=== PATIENT | male | born 1970 | race Caucasian/White ===

== ENCOUNTER → 2017-03-09 | Outpatient (CLI) | payer OTHER ==
[~2017-03-09] MED LIST: ADAL40KI SC; AMPH10TA2 PO; CHOLTAB11 PO; CZR50 PO; GLC/500 PO; WARF5TAB7 PO; WARF7.5T4 PO
--- NOTE | 2017-03-09 08:40 | DIAGNOSTIC IMAGING REPORT ---
BILIARY ULTRASOUND CLINICAL HISTORY: ABNORMAL LIVER ENZYMES LEVELS COMPARISON STUDY: No previous studies for comparison. FINDINGS: The pancreas appears sonographically normal. The gallbladder appears sonographically normal. There is no ductal dilatation. The common bile duct measures 4 mm. There is no right-sided hydronephrosis. There is mild renal cortical thinning. No focal hepatic masses are visualized. There is borderline increase in hepatic echogenicity. This is a nonspecific finding which may indicate mild hepatic steatosis. IMPRESSION: 1. Borderline increase in hepatic echogenicity, a finding likely secondary to mild hepatic steatosis 2. No focal hepatic masses 3. Ultrasonographically normal gallbladder and pancreas 4. No ductal dilatation Electronically signed by: Meño Ramos M.D. 03/09/2017 8:39 AM Dictated Date/Time: 03/09/2017 8:38 AM
== END | disposition home or self-care (01) ==
LOC: C.ULTR 07:50
PROVIDERS: ATTEND Family Medicine
DX: R74.8 Abnormal levels of other serum enzymes (principal)

== ENCOUNTER → 2017-11-12 | Outpatient (CLI) | payer OTHER ==
--- NOTE | 2017-11-12 10:53 | DIAGNOSTIC IMAGING REPORT ---
WEIGHTBEARING LEFT FOOT RADIOGRAPHS CLINICAL HISTORY: Navicular pain worse with weightbearing. COMPARISON: None FINDINGS: Tarsometatarsal joints are intact. No acute fracture within the left foot is identified. No erosions are identified. There is mild posterior and moderate plantar calcaneal spurring. There is minimal joint space narrowing and osteophytosis of the talonavicular articulation. IMPRESSION: 1. No acute fracture or dislocation within the left foot. 2. Moderate plantar and mild posterior calcaneal spurring. 3. Mild talonavicular articulation osteoarthritis. Electronically signed by: Cooper Newton M.D. 11/12/2017 10:52 AM Dictated Date/Time: 11/12/2017 10:50 AM
== END | disposition home or self-care (01) ==
LOC: C.RAD1850 09:29
PROVIDERS: ATTEND Family Medicine
DX: M77.52 Other enthesopathy of left foot and ankle (principal); M77.32 Calcaneal spur, left foot; M19.072 Primary osteoarthritis, left ankle and foot

== ENCOUNTER → 2017-12-17 | Outpatient (CLI) | payer OTHER ==
--- NOTE | 2017-12-17 11:14 | DIAGNOSTIC IMAGING REPORT ---
L LOWER EXT JOINT WITHOUT CLINICAL HISTORY: 47 years-old Male with LEFT HIND FOOT PAIN. Acute medial left foot and ankle pain COMPARISON: Left foot radiographs 11/12/2017. TECHNIQUE: Multiplanar, multi sequence MRI of the left hindfoot was performed without contrast. FINDINGS: LATERAL LIGAMENT COMPLEX: The anterior talofibular ligament, calcaneofibular ligament and posterior talofibular ligaments are intact. SYNDESMOTIC LIGAMENTS: The anterior-inferior tibiofibular ligament, interosseous membrane and posterior-inferior tibiofibular ligaments are intact. DELTOID LIGAMENT COMPLEX: The superficial and deep components of the deltoid ligament are intact. ANTERIOR TENDONS: The tibialis anterior, extensor hallucis longus and extensor digitorum longus tendons are normal in position, morphology and signal. LATERAL TENDONS: The peroneus longus and brevis tendons are intact. Mild tenosynovitis of the peroneus brevis and longus tendons along their inframalleolar coarse. MEDIAL TENDONS: The posterior tibialis, flexor digitorum longus and flexor hallucis longus tendons are intact. PLANTAR FASCIA: The medial and lateral bundles of the plantar fascia are normal in morphology and signal. There is no evidence of acute plantar fasciitis or tear. No evidence of plantar fascial nodules. There is mild thickening of the medial and lateral cords of the plantar fascia with moderate sized plantar enthesophyte suggesting sequela of chronic plantar fasciitis. ACHILLES TENDON: The Achilles tendon is normal in position, morphology and signal. No associated bursitis. Small Achilles enthesophyte about the calcaneus. SINUS TARSI: There is normal fat signal within the sinus tarsi. The interosseous and cervical ligaments are normal. The navicular-calcaneal (spring) ligament is without acute abnormality. TARSAL TUNNEL: There are no obstructing lesions within the tarsal tunnel. BONE MARROW: Bone marrow is normal in signal without evidence of fracture, marrow contusion or marrow occupying lesion. Minimal degenerative changes of the talonavicular joint with chondral thinning, joint space narrowing and marginal spurring. SOFT TISSUES: There is minimal subcutaneous edema within the soft tissues medial to the navicular at adjacent to the skin marker with prominent navicular tuberosity. IMPRESSION: 1. 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 No focal fracture, significant bone marrow edema or other soft tissue abnormality identified within this region. 2. Moderate sized plantar enthesophyte with evidence of chronic plantar fasciitis. 3. Mild tenosynovitis of the peroneus brevis and longus tendons along their inframalleolar coarse The above report was generated using voice recognition software. It may contain grammatical, syntax or spelling errors. Electronically signed by: Harman Aranda M.D. 12/17/2017 11:13 AM Dictated Date/Time: 12/17/2017 11:01 AM
== END | disposition home or self-care (01) ==
LOC: C.MRI 09:33
PROVIDERS: ATTEND Podiatrist Foot & Ankle Surgery
DX: M66.862 Spontaneous rupture of other tendons, left lower leg (principal); M65.862 Other synovitis and tenosynovitis, left lower leg